=== PATIENT | female | born 1975 | race Caucasian/White ===

== ENCOUNTER 2017-07-01 00:10 | Emergency (ER) | payer OTHER, MEDICARE ==
[~2017-07-01] VITALS: Ht 162.6 cm; Wt 68.2 kg
[~2017-07-01 00:10] MED LIST: BAC10 PO; CITA20TA PO; GABA800T PO; LORA0.5T PO; NPR250T1 PO; SYM100 PO; TIZA4TABA PO; [UNRECOGNIZED DRUG - CODE] SUBQ
[2017-07-01 00:17] VITALS: BP 155/95; PULSE 65; RESP 18; O2SAT 99
[2017-07-01 01:10] VITALS: BP 152/90; PULSE 72; RESP 16; O2SAT 99
--- NOTE | 2017-07-01 02:47 | ED.REPORT ---
HPI-General Illness Date of Service Jul 01, 2017 ED Provider: Lester Delarosa MD Pt is a 42 year old female with a hx of MS presenting to the ED complaining of waking up feeling diffuse heat and redness in her head, ears, and extremities onset just prior to arrival as she was falling asleep. She describes the symptoms as feeling like "pins and needles." Denies lightheadedness, SOB, wheezing, nausea, or chills. She denies any hx of previous symptoms or new medications. Nursing Notes Stated Complaint: BODY RASH/POSS ALLERGIC REACTION Chief Complaint: General Complaint Nursing Notes Reviewed: Yes Allergies: Coded Allergies: Sulfa (Sulfonamide Antibiotics) (Verified Allergy, Intermediate, rash as child, 07/08/13) Scheduled Amantadine-Expunged Drug, Do Not Renew! (Amantadine-Expunged Drug, Do Not Renew! ) 100 Mg Capsule 100 MG PO BID Baclofen-Expunged Drug, Do Not Renew! (Baclofen-Expunged Drug, Do Not Renew!) 10 Mg Tablet 20 MG PO DAILY For the treatment of muscle spasticity Citalopram-Expunged Drug, Do Not Renew! (Citalopram-Expunged Drug, Do Not Renew! ) 20 Mg Tablet 40 MG PO DAILY GLATIRAMER DARIN-Expunged Drug, Do Not Renew! (Copaxone-Expunged Drug, Do Not Renew!) 20 Mg Syr 20 MG SUBQ HS Gabapentin-Expunged Drug, Do Not Renew! (Neurontin-Expunged Drug, Do Not Renew! ) 800 Mg Tablet 600 MG PO BID Lorazepam-Expunged Drug, Do Not Renew! (Lorazepam-Expunged Drug, Do Not Renew!) 0.5 Mg Tablet 0.5 MG PO BID Naproxen-Expunged Drug, Do Not Renew! (Naprosyn-Expunged Drug, Do Not Renew!) 250 Mg Tab 500 MG PO BID Tizanidine-Expunged Drug, Do Not Renew! (Tizanidine-Expunged Drug, Do Not Renew! ) 4 Mg Tablet 4 MG PO DAILY General Time Seen by MD: 02:38 Chief Complaint Other (Diffuse heat) Hx Obtained From: Patient Arrived By: Walk-in Sudden in Onset?: Yes Onset Occurred: Just prior to arrival Symptom Duration: Since onset Recent Healthcare: No recent doctor visit, No recent hospitalization Similar Sx Previous: No Past Medical History Past Medical History MS Past Surgical History denies Smoking History Unknown if Ever Smoker Ambulatory Status Independent Review of Systems Diffuse heat Full Review of Systems Constitutional: Reports: Chills Respiratory: Denies: Shortness of breath, Wheezing GI: Denies: Nausea Skin: Reports Rash Neurologic: Denies: Lightheaded Complete sys rev & neg: except as marked. Physical Exam Vital Signs Vital Signs Date Time Temp Pulse Resp B/P Pulse Ox O2 Delivery O2 Flow Rate FiO2 07/01/17 03:19 68 116/77 07/01/17 03:18 59 103/65 07/01/17 01:10 36.8 72 16 152/90 99 Room Air 07/01/17 00:17 36.6 65 18 155/95 99 Initial VS: Reviewed General/Constitutional: Well-developed, Well-nourished Head / Eyes: Atraumatic, Normocephalic, PERRL ENT: Mucous membranes moist, Conjunctiva normal, No scleral icterus Neck: Supple, Non-tender, Full range of motion Respiratory: Breath sounds normal, Clear to auscultation, No respiratory distress Cardiovascular: Regular rate & rhythm, Heart sounds normal, Intact distal pulses Abdomen / GI: Soft, Non-tender, No guarding, No rebound, No distention Extremities: Vascular intact, Neuro intact, No swelling, No tenderness Neurologic: Alert, Oriented, Nonfocal Psychiatric: Mood/affect normal, Behavior normal, Normal thought content Skin: Warm, Dry, Intact Bit of erythema across neck, shoulders and upper back Re-Eval/Medical Decision Med Decision/Clinical Course 42-year-old female with a episode of body flushing and heat. She denies use of niacin, steroids, or any other medication or supplement that would cause such symptoms. There is no evidence on her history or physical exam of infection. She is young for menopausal symptoms but this is a consideration. She will follow-up with her primary doctor as needed for recurrence of this. Time of Eval: 02:55 Patient Status: Condition improved Re-Evaluation/Progress Note: Discussed the pt's PMHX and plan for discharge. Counseled Regarding: Diagnosis, Lab results, Need for follow-up, When/why to return to ED Discharge & Departure Primary Impression: Flushing Disposition: Home Discharge Condition All VS Reviewed: Yes Condition: Improved Patient Instructions: Menopause (ED) Additional Instructions: The cause of your flushing is not certain. There does not appear to be any evidence of infection. It is not due to any medications your on (steroids and niacin can cause this). It may be due to early menopause. No specific treatment or evaluation is indicated at this time. If you have recurrent symptoms like this your primary doctor can check your female hormones (FSH and LH) for menopause. Referrals: Denilson Ann MD (PCP) Scribe Attestation Portions of this note were transcribed by Allyson Moreno. I, Dr. Delarosa personally performed the history, physical exam and medical decision-making; I reviewed and confirmed the accuracy of the information in the transcribed note. Signed by: Malachi Nielson, 07/01/2017. copies to: Denilson Ann MD, Howard L MD Jul 01, 2017 02:47 ALLYSON MORENO Jul 01, 2017 02:54
[2017-07-01 03:18] VITALS: BP 103/65; PULSE 59
[2017-07-01 03:19] VITALS: BP 116/77; PULSE 68
== END 2017-07-01 03:34 | disposition home or self-care (01) ==
LOC: SED 00:10
DX: R23.2 Flushing (principal); G35 Multiple sclerosis; Z88.2 Allergy status to sulfonamides